=== PATIENT | female | born 1980 | race Caucasian/White ===

== ENCOUNTER 2023-05-08 12:37 | Emergency (ER) | payer SELFPAY ==
[~2023-05-08] VITALS: Ht 160 cm; Wt 108.9 kg
[2023-05-08 13:19] VITALS: BP 153/97; PULSE 83; RESP 18; TEMP 97; O2SAT 97
[2023-05-08] MEDS ORDERED: BPM/178S PO (14:09)
[2023-05-08] MEDS ORDERED: AMOX1TAB8 PO (14:09)
[2023-05-08 14:16] LABS: BASOPHILS % (AUTO) 0.1 % (0.0-2.0); EOSINOPHILS # (AUTO) 0.6 K/uL (0-0.4); EOSINOPHILS % (AUTO) 5.4 % (0.0-4.0); HEMATOCRIT 38.1 % (36-48); HEMOGLOBIN 13.2 g/dL (12.0-16.0); LYMPHOCYTES # (AUTO) 2.8 K/uL (2.5-16.5); LYMPHOCYTES % (AUTO) 24.1 % (20.5-51.1); MEAN CORPUSCULAR HEMOGLOBIN 29 pg (27-31); MEAN CORPUSCULAR HGB CONC 35 g/dL (33-37); MEAN CORPUSCULAR VOLUME 83.3 fL (80-94); MONOCYTES # (AUTO) 0.6 K/uL (0.8-1.0); MONOCYTES % (AUTO) 5.6 % (1.7-9.3); NEUTROPHILS # (AUTO) 7.5 K/uL (1.8-7.7); NEUTROPHILS % (AUTO) 64.8 % (42.2-75.2); PLATELET COUNT (AUTO) 277 K/uL (140-450); RED BLOOD CELL COUNT(AUTO) 4.58 MIL/uL (4.20-5.40); RED CELL DISTRIBUTION WIDTH 15.2 % (11.6-13.7); WHITE BLOOD COUNT (AUTO) 11.6 K/uL (4.8-10.8)
[2023-05-08 14:45] LABS: ALBUMIN 3.5 g/dL (3.4-5.0); ANION GAP 16.8 (8-16); CALCIUM 8.1 mg/dL (8.5-10.1); CARBON DIOXIDE 22.3 mmol/L (21-32); CREATININE 0.8 mg/dL (0.6-1.3); FREE T4 (FREE THYROXINE) 0.88 ng/dL (0.76-1.46); POTASSIUM 4.1 mmol/L (3.5-5.1); THYROID STIMULATING HORMONE 1.33 uIU/mL (0.34-3.74); TOTAL BILIRUBIN 0.3 mg/dL (0.0-1.0); TOTAL PROTEIN, SERUM 8.3 g/dL (6.4-8.2)
[2023-05-08 19:20] LABS: FLU A ANTIGEN negative (NEGATIVE)
[2023-05-08 19:21] LABS: FLU B ANTIGEN NEGATIVE (NEGATIVE)
[2023-05-08 20:17] VITALS: BP 181/107; PULSE 77; RESP 18; O2SAT 98
== END 2023-05-08 20:20 | disposition home or self-care (01) ==
LOC: MED 12:37
DX: J06.9 Acute upper respiratory infection, unspecified (principal); Z20.822 Contact with and (suspected) exposure to COVID-19; J45.909 Unspecified asthma, uncomplicated; Z88.0 Allergy status to penicillin; Z79.899 Other long term (current) drug therapy
CPT/HCPCS: 36415; 71045; 80053; 81025; 84439; 84443; 85025; 99284